=== PATIENT | female | born 1980 | race Caucasian/White ===

== ENCOUNTER 2017-02-15 20:48 | Emergency (ER) | payer MEDICAID ==
[~2017-02-15] VITALS: Ht 152.4 cm; Wt 80.6 kg
[~2017-02-15 20:48] MED LIST: ALPR0.25 PO; AMLO5TAB4 PO; CITA20TA17 PO; HYDR-3841 PO; HYDR-4246 PO; METO-275 PO; NAPR500T PO; NORE5TAB2 PO; PREG50CA PO
[2017-02-15 20:56] VITALS: Ht 152.4 cm; Wt 80.6 kg
[2017-02-15] MEDS ORDERED: HYDR25TA85 PO (21:25)
[2017-02-15] MEDS ORDERED: CITA40TA6 PO (21:25)
[2017-02-15] MEDS ORDERED: AMLO10TA2 PO (21:25)
--- NOTE | 2017-02-15 21:32 | ERPDOC ---
Departure Disposition Decision Date: Feb 15, 2017 Disposition Decision Time: 21:52 Disposition: 01 DISCHARGED HOME, SELF-CARE Impression Impression Impression: Primary Impression: Acute viral pharyngitis Severity: Mild Condition: Stable Seen By: Mid-level only Referrals: CONSTANZA LIRIANO (PCP) Patient Instructions: Pharyngitis (ED) Problems/Meds/Labs Reviewed?: Yes Medications reviewed and manag: Yes Additional Instructions: Continue taking 500mg of naproxen twice daily. Rest. Stay hydrated. You may gargle with salt water (1tsp to 1 cup a water), 4-6 times daily. You may use OTC throat lozenges and sprays. Use good hand washing. Follow treatment plan. Follow as needed. Follow up care ordered?: Yes Mental Status: Alert, Oriented [facility] General General Chief Complaint: Throat Pain/Injury Stated Complaint: SORE THROAT,FEVER, CHILLS Time Seen by Provider: 21:18 Source: patient HPI - EENT General Initial Comments 36 YO F presents to ED with report of subjective fever, body aches, rhinorrhea and sore throat since . Patient was seen at today and had a negative strep and influenza. Patient says she has been taking 500mg of naproxen which has not been helping sore throat. Pain/Severity Scale: Now: 6/10 Location: throat Prearrival Treatment: over the counter meds Associated Symptoms: fever, sore throat, DENIES: change in hearing, cough, drooling, ear drainage, facial pain/swelling, malaise, nasal congestion/drainage , poor fluid intake, poor solids intake, sinus infection, tooth pain, voice change Allergies: Coded Allergies: bacitracin (Verified Allergy, Intermediate, 02/15/17) neomycin (Verified Allergy, Intermediate, 02/15/17) polymyxin B (Verified Allergy, Intermediate, 02/15/17) erythromycin base (Verified Allergy, Unknown, 02/15/17) ketorolac (Verified Allergy, Unknown, 02/15/17) tramadol (Verified Allergy, Unknown, 02/15/17) Past History Past Medical History Metabolic: hypertension Cardiac: DENIES: angina Respiratory: DENIES: asthma GI: DENIES: ulcers Female: UTI, endometriosis Neurological: fibromyalgia, DENIES: seizures Musculoskeletal: DENIES: rheumatoid arthritis Psychological: DENIES: depression Surgical History General: appendix Family History Family PMH: FOUND: other (noncontribuory) Social History Substance Use Type: does not use Alcohol Intake: none Marital Status: Sexuality: male partner Household Members: family Review of Systems Constitutional Constitutional: fever, DENIES: chills, dizziness, weakness Eyes General: DENIES: erythema, exudate Lids/Accessories: DENIES: erythema, swelling Vision: DENIES: blurring ENMT Ears: DENIES: pain Hearing: DENIES: hearing loss Sinuses: congestion, rhinorrhea Mouth/Throat: painful swallowing, sore throat, DENIES: change in swallowing, change in voice, hoarsness Cardiovascular Cardiac: DENIES: chest pain, murmur Rhythm/Rate: DENIES: palpitations Pulmonary Respiratory: DENIES: cough, dyspnea GI Upper Abdomen: DENIES: nausea, pain, vomiting Lower Abdomen: DENIES: diarrhea, pain General: DENIES: dysuria, pain Musculoskeletal General: DENIES: joint pain, pain, tenderness Integumentary Skin: DENIES: color change, itching, rash Neurological General: DENIES: ataxia, change in strength, numbness, paralysis/paresis, weakness Psychiatric Psychiatric: DENIES: anxiety, depression, nervousness Physical Exam General General Nourishment: well nourished, well developed, adult General Body Habitus: well groomed Vitals and Pain Weight: Kilograms: 80.600 Height (feet): 5 Height (inches): 0 Triage Pain Scale: Eyes (brief) Eyes Brief: found: EOMI, PERRL ENMT Ear/Canal/Mastiod: NOT FOUND: blood, discharge Tympanic Membrane : Location: Bilateral Tympanic Membrane: FOUND Normal, NOT FOUND Bulging, NOT FOUND Erythema, NOT FOUND Fluid, NOT FOUND Retracted Nose: FOUND: drainage (clear), NOT FOUND: deformity Mouth/Dental/Tongue: FOUND: mucosa moist Pharynx: FOUND: other (posterior erythema), NOT FOUND: cobblestoning, displacement, edema, exudates, posterior drainage, uvular deviation Jaw: NOT FOUND: tenderness, trismus Neck (brief) Neck: FOUND: trachea midline, NOT FOUND: adenopathy, tenderness, thyromegaly Respiratory (brief) Respiratory: FOUND: clear all jackson, equal bilaterally, symmetrical Cardiovascular (brief) Cardiac: FOUND: regular rate, regular rhythm Musculoskeletal (brief) Musculoskeletal Brief: NOT FOUND: deformity, loss of motion Integumentary (brief) Integumentary Brief: FOUND: dry, pink, warm Neurologic (brief) Neurological Brief: FOUND: CN w/o gross def to obs, motor-no gross deficits, sensory-no gross deficits Psychiatric (brief) Psychiatric Brief: FOUND: alert, normal affect, oriented Differential Diagnoses Considering: Abscess, Pharyngitis, Sinusitis, URI Progress Progress Progress I discussed with patient that her symptoms and exam findings are consistent with a viral pharyngitis. I did offer patient additional labs since she is concerned that this maybe more than a viral pharyngitis. Patient did decline blood drawn. Patient is afebrile, HR is in the 80s with BP 120/74. Patient verbalized understanding of tx. plan, follow up as needed with PCP and return precautions. BAILEY DUPREE APRN Feb 15, 2017 21:32
[2017-02-15 22:05] VITALS: BP 118/75; PULSE 79; RESP 18; TEMP 98.9; O2SAT 97
[2017-02-18] MEDS ORDERED: AMOX500T2 PO (10:15)
== END 2017-02-15 22:05 | disposition home or self-care (01) ==
LOC: ED 20:48
DX: J02.8 Acute pharyngitis due to other specified organisms (principal); B97.89 Other viral agents as the cause of diseases classified elsewhere

== ENCOUNTER → 2017-03-14 | Outpatient (CLI) | payer MEDICAID ==
[~2017-03-14] MED LIST changes: -ALPR0.25 PO; +AMLO10TA2 PO; -AMLO5TAB4 PO; +AMOX500T2 PO; -CITA20TA17 PO; +CITA40TA6 PO; -HYDR-3841 PO; +HYDR25TA85 PO; -NORE5TAB2 PO
--- NOTE | 2017-03-14 16:55 | DI ---
INDICATION: ITS.REASON: R50.9 FEVER PROCEDURE: CHEST 2-VIEWS UPRIGHT (PA \T\ LAT) Encounter: Initial COMPARISON: None FINDINGS: The lungs are clear without evidence of focal abnormal airspace opacity. There is no pleural effusion or pneumothorax. The heart size, mediastinal contours and pulmonary vascularity are within normal limits. There is no significant skeletal abnormality. IMPRESSION: No acute cardiopulmonary disease. .
== END ==
LOC: IMA 15:14
PROVIDERS: ATTEND Obstetrics & Gynecology
DX: R50.9 Fever, unspecified (principal)